=== PATIENT | male | born 1955 | race Caucasian/White ===

== ENCOUNTER 2023-01-15 13:27 | Outpatient (CLI) | payer OTHER | END 2023-01-15 13:28 | disposition home or self-care (01) | LOC: BICCT 13:27 | PROVIDERS: ATTEND Internal Medicine | DX: R91.8 Other nonspecific abnormal finding of lung field (principal); J43.9 Emphysema, unspecified; J98.4 Other disorders of lung | CPT/HCPCS: 71250 ==

== ENCOUNTER 2023-06-03 11:53 | Outpatient (CLI) | payer OTHER | END 2023-06-03 11:54 | disposition home or self-care (01) | LOC: RAD 11:53 | PROVIDERS: ATTEND Internal Medicine | DX: R06.00 Dyspnea, unspecified (principal); J84.10 Pulmonary fibrosis, unspecified | CPT/HCPCS: 71046 ==

== ENCOUNTER 2023-06-14 08:18 | Outpatient (CLI) | payer OTHER ==
[2023-06-14] MEDS ORDERED: Barium Sulfate 96% 176 GM BOT (xray ONLY) ONE (08:31)
[2023-06-14] MEDS ORDERED: E-Z-HD 98% W/W 340GM BOT (x-ray ONLY) ONE (08:31)
== END 2023-06-14 08:19 | disposition home or self-care (01) ==
LOC: RAD 08:18
PROVIDERS: ATTEND Internal Medicine
DX: R13.10 Dysphagia, unspecified (principal)
CPT/HCPCS: 74220

== ENCOUNTER 2023-08-17 12:22 | Outpatient (CLI) | payer OTHER ==
[~2023-08-17 12:22] MED LIST: Magnevist 469MG/ML 20 ML VIAL ONE
== END 2023-08-17 12:23 | disposition home or self-care (01) ==
LOC: MRI 12:22
PROVIDERS: ATTEND Internal Medicine
DX: C34.12 Malignant neoplasm of upper lobe, left bronchus or lung (principal)
CPT/HCPCS: 70553; A9579

== ENCOUNTER 2023-09-02 14:29 | Outpatient (CLI) | payer OTHER | END 2023-09-02 14:30 | disposition home or self-care (01) | LOC: BICCT 14:29 | PROVIDERS: ATTEND Internal Medicine | DX: C34.12 Malignant neoplasm of upper lobe, left bronchus or lung (principal); R59.0 Localized enlarged lymph nodes; I71.43 Infrarenal abdominal aortic aneurysm, without rupture; R91.8 Other nonspecific abnormal finding of lung field; J84.10 Pulmonary fibrosis, unspecified; I28.8 Other diseases of pulmonary vessels; K42.9 Umbilical hernia without obstruction or gangrene | CPT/HCPCS: 71260; 74177 ==

== ENCOUNTER 2023-10-01 06:17 | Emergency (ER) | payer OTHER | END 2023-10-01 06:36 | disposition home or self-care (01) | LOC: ERS 06:17 | DX: K43.9 Ventral hernia without obstruction or gangrene (principal); C34.90 Malignant neoplasm of unspecified part of unspecified bronchus or lung; Z87.891 Personal history of nicotine dependence ==

== ENCOUNTER 2023-10-26 09:49 | Day surgery (SDC) | payer OTHER ==
[2023-10-26] MEDS ORDERED: diphenhydrAMINE 25 MG CAP PO SCH (10:15)
[2023-10-26] MEDS ORDERED: Acetaminophen 500 MG TAB ONE (11:13)
[2023-10-26] MEDS: Acetaminophen 500 MG TAB PO SCH (11:14)
[2023-10-26 14:35] VITALS: BP 101/58; TEMP 97.9
== END 2023-10-26 14:57 | disposition home or self-care (01) ==
LOC: ONC/OP 09:49
PROVIDERS: ATTEND Internal Medicine
DX: D64.9 Anemia, unspecified (principal); D69.6 Thrombocytopenia, unspecified; Z88.0 Allergy status to penicillin
CPT/HCPCS: 36430; 86850; 86900; 86901; J1642; P9016

== ENCOUNTER 2024-01-17 10:24 | Inpatient (IN) | payer MEDICARE, OTHER ==
[~2024-01-17 10:24] MED LIST changes: +Iopamidol-370 76% 500 ML MDV (1 ML CHARGE) ONE; -Magnevist 469MG/ML 20 ML VIAL ONE
[2024-01-17 11:22] LABS: #Basophils Less than 0.03 10x3/uL (0.0-0.2); %Basophils 0.3 % (0.0-1.0); %Eosinophils 0.5 % (0.0-10.0); %Lymphocytes 3.4 % (21.0-51.0); %Monocytes 9.9 % (0.0-10.0); %Neutrophils 85.6 % (42.0-75.0); Hematocrit 31.8 % (42.0-52.0); Hemoglobin 10.6 g/dL (14.0-18.0); Mean Corpuscular HGB CONC 33.3 g/dL (32.0-36.0); Mean Corpuscular Hemoglobin 34.4 pg (27.0-31.0); Mean Corpuscular Volume 103.2 fL (78.0-98.0); Mean Platelet Volume 10.1 fL (7.4-10.4); Platelet Count 134 10x3/uL (130-400); RBC Distribution Width 13.2 % (11.5-14.5); Red Blood Cell (RBC) Count 3.08 mill/uL (4.70-6.10)
[2024-01-17 11:39] LABS: INR-International Normal Ratio 1.6; PTT 39.5 sec (22.9-36.1); Prothrombin Time 18.6 sec (12.0-14.7)
[2024-01-17] MEDS ORDERED: Ipratropium/Albuterol 3 ML NEB ONE (11:56)
[2024-01-17 11:57] LABS: ALT (SGPT) 63 U/L (8-55); AST (SGOT) 67 U/L (5-34); Albumin 2.7 g/dL (3.4-4.8); Alkaline Phosphatase 252 U/L (40-110); Anion Gap 16 mmol/L (10-20); BUN (Urea Nitrogen) 20 mg/dL (8.4-25.7); Bilirubin, Total 1.5 mg/dL (0.2-1.2); Calc. Creatinine Clearance 0 mL/min (70-130); Carbon Dioxide 22 mmol/L (23-31); Chloride 99 mmol/L (98-107); Estimated GFR 81; Globulin 5.2 g/dL (2.4-3.5); Glucose 120 mg/dL (80-115); Potassium 4.6 mmol/L (3.5-5.1); Protein, Total 7.9 g/dL (5.8-8.1); Sodium 132 mmol/L (136-145)
[2024-01-17 12:07] LABS: Troponin I 0.603 ng/mL (< 0.028)
[2024-01-17] MEDS ORDERED: Aspirin Chewable 81 MG TAB ONE (13:14)
[2024-01-17] MEDS ORDERED: Calcium Carbonate 500 MG ChewTAB PO PRN (14:40)
[2024-01-17] MEDS ORDERED: Ondansetron PF 4 MG/2 ML Vial IVP PRN (14:40)
[2024-01-17] MEDS ORDERED: Senokot S 8.6-50 MG TAB PO PRN (14:40)
[2024-01-17] MEDS ORDERED: Benzonatate 100 MG CAP PO PRN (14:50)
[2024-01-17 16:10] LABS: Troponin I 1.069 ng/mL (< 0.028)
[2024-01-17] MEDS: Sodium Chloride 0.9% 500 ML IV SCH (16:59)
[2024-01-17] MEDS: Sodium Chloride 0.9% 1,000 ML IV SCH (17:48)
[2024-01-17 19:06] LABS: Troponin I 1.196 ng/mL (< 0.028)
[2024-01-17] MEDS: Cyclobenzaprine 10 MG TAB PO SCH (20:41)
[2024-01-17] MEDS: Enoxaparin 80 MG (0.8 mL) SYRINGE SC SCH (20:42)
[2024-01-17] MEDS ORDERED: Apixaban 5 MG TAB PO SCH (21:00)
[2024-01-18 05:37] LABS: #Basophils Less than 0.03 10x3/uL (0.0-0.2); %Basophils 0.2 % (0.0-1.0); %Monocytes 11.1 % (0.0-10.0); %Neutrophils 83.1 % (42.0-75.0); Hematocrit 27.1 % (42.0-52.0); Hemoglobin 9.1 g/dL (14.0-18.0); Mean Corpuscular HGB CONC 33.6 g/dL (32.0-36.0); Mean Corpuscular Hemoglobin 34.1 pg (27.0-31.0); Mean Corpuscular Volume 101.5 fL (78.0-98.0); Mean Platelet Volume 10.5 fL (7.4-10.4); Platelet Count 126 10x3/uL (130-400); RBC Distribution Width 13.2 % (11.5-14.5); Red Blood Cell (RBC) Count 2.67 mill/uL (4.70-6.10)
[2024-01-18 06:29] LABS: ALT (SGPT) 82 U/L (8-55); Albumin 2.2 g/dL (3.4-4.8); Alkaline Phosphatase 293 U/L (40-110); Anion Gap 13 mmol/L (10-20); BUN (Urea Nitrogen) 14 mg/dL (8.4-25.7); Calc. Creatinine Clearance 82 mL/min (70-130); Calcium 8.2 mg/dL (7.8-10.44); Carbon Dioxide 22 mmol/L (23-31); Chloride 105 mmol/L (98-107); Estimated GFR 88; Globulin 3.5 g/dL (2.4-3.5); Glucose 111 mg/dL (80-115); Potassium 4.4 mmol/L (3.5-5.1); Protein, Total 5.7 g/dL (5.8-8.1); Sodium 136 mmol/L (136-145)
[2024-01-18] MEDS: Mometasone 200 MCG/Formoterol 5 MCG 120 PUFF INHALER INH SCH (06:45)
[2024-01-18 06:52] LABS: AST (SGOT) 107 U/L (5-34)
[2024-01-18] MEDS ORDERED: guaiFENesin/Codeine 200 mg/20 mg 10 ml Cup PO PRN (07:43)
[2024-01-18] MEDS: Aspirin Chewable 81 MG TAB PO SCH (08:35)
[2024-01-18] MEDS: guaiFENesin/Codeine 200 mg/20 mg 10 ml Cup PO SCH ×2 (08:35→12:30)
[2024-01-18] MEDS: Benzonatate 100 MG CAP PO SCH (08:35)
[2024-01-18] MEDS ORDERED: Enoxaparin 40 MG (0.4 mL) SYRINGE SC SCH (09:00)
[2024-01-18] MEDS: Ipratropium/Albuterol 3 ML NEB NEB SCH ×2 (09:30→12:24)
[2024-01-18] MEDS: dilTIAZem CD 120 MG CAP PO SCH ×2 (12:30→18:03)
[2024-01-18] MEDS: predniSONE 20 MG TAB PO SCH (17:22)
[2024-01-18] MEDS: Pantoprazole DR 40 MG TAB PO SCH (17:22)
[2024-01-18] MEDS ORDERED: dilTIAZem CD 180 MG CAP PO SCH (17:45)
[2024-01-18] MEDS: Digoxin 0.5 MG/2 ML AMP SLOW IVP SCH (18:03)
[2024-01-18] MEDS: Digoxin 0.5 MG/2 ML AMP ONE (18:13)
[2024-01-18] MEDS: Acetaminophen 325 MG TAB PO PRN (20:45)
[2024-01-18] MEDS ORDERED: Magnesium 2 GM/50 ML(in water) 2 GM in Premix 1 BAG IVPB SCH (21:15)
[2024-01-18] MEDS ORDERED: Magnesium Sulfate In Water 4 GM in Premix 1 BAG IVPB SCH (21:30)
[2024-01-18 21:41] LABS: Actual Bicarbonate (HCO3v) 20.1 mEq/L (22-28); Base Excess -2.3 mEq/L (-2.0 to +3.0); Calcium, Ionized (venous) 1.11 mmol/L (1.16-1.32); Chloride (VBG) 99 mmol/L (98-106); Hematocrit-VBG 32 % (42.0-52.0); Potassium (VBG) 4.51 mmol/L (3.70-5.30); pH (venous) 7.483 (7.32-7.43)
[2024-01-18 21:54] LABS: #Basophils Less than 0.03 10x3/uL (0.0-0.2); #Eosinophils Less than 0.03 10x3/uL (0.0-0.7); %Basophils 0.3 % (0.0-1.0); %Eosinophils 0.1 % (0.0-10.0); %Lymphocytes 1.1 % (21.0-51.0); %Monocytes 5.3 % (0.0-10.0); %Neutrophils 92.5 % (42.0-75.0); Hematocrit 28.7 % (42.0-52.0); Hemoglobin 9.9 g/dL (14.0-18.0); Mean Corpuscular HGB CONC 34.5 g/dL (32.0-36.0); Mean Corpuscular Hemoglobin 34.1 pg (27.0-31.0); Mean Platelet Volume 10.6 fL (7.4-10.4); Platelet Count 133 10x3/uL (130-400); RBC Distribution Width 13.2 % (11.5-14.5)
[2024-01-18] MEDS: Acetaminophen 325 MG TAB PO SCH (22:06)
[2024-01-18] MEDS: Doxycycline 100 MG CAP PO SCH (22:07)
[2024-01-18] MEDS: cefTRIAXone\\ROCEPHIN 1 GM in Sodium Chloride 0.9% 100 ML IVPB SCH (22:07)
[2024-01-18] MEDS: Magnesium 2 GM/50 ML(in water) 2 GM in Premix 1 BAG IVPB SCH (22:07)
[2024-01-18 22:14] LABS: Lactic Acid 1.09 mmol/L (0.5-2.2)
[2024-01-18 22:16] LABS: ALT (SGPT) 67 U/L (8-55); AST (SGOT) 65 U/L (5-34); Albumin 2.3 g/dL (3.4-4.8); Alkaline Phosphatase 267 U/L (40-110); Anion Gap 19 mmol/L (10-20); BUN (Urea Nitrogen) 11 mg/dL (8.4-25.7); Bilirubin, Total 1.3 mg/dL (0.2-1.2); Calc. Creatinine Clearance 86 mL/min (70-130); Calcium 9.3 mg/dL (7.8-10.44); Carbon Dioxide 19 mmol/L (23-31); Chloride 101 mmol/L (98-107); Estimated GFR 93; Globulin 4.7 g/dL (2.4-3.5); Glucose 125 mg/dL (80-115); Potassium 4.5 mmol/L (3.5-5.1); Sodium 134 mmol/L (136-145)
[2024-01-19 00:27] LABS: Bacteria/HPF None Seen HPF (None Seen); Bilirubin Negative (Negative); Blood, Urine Trace (Negative); CAUTI Indications for Culture Fever or rigors; Clarity Clear (Clear); Glucose, Urine (Dipstick) Normal (Negative); Ketone, Urine 20 mg/dL (Negative); Leukocyte Negative Leu/uL (Negative); Nitrite Negative (Negative); Protein, Urine (Dipstick) 20 mg/dL (Neg-Trace); RBC/HPF 0-3 HPF (0-3); Specific Gravity, Urine 1.008 (1.002-1.036); Squamous Epithelial 0-3 HPF (0-3); Urobilinogen 3 mg/dL (Less than 2); WBC/HPF 0-3 HPF (0-3); pH, Urine 5.5 (5.0-9.0)
[2024-01-19 00:38] LABS: Urine Culture Reflex No No
[2024-01-19] MEDS: Ipratropium/Albuterol 3 ML NEB NEB PRN (01:43)
[2024-01-19 04:56] LABS: Anion Gap 16 mmol/L (10-20); BUN (Urea Nitrogen) 13 mg/dL (8.4-25.7); Calc. Creatinine Clearance 83 mL/min (70-130); Calcium 9.4 mg/dL (7.8-10.44); Carbon Dioxide 20 mmol/L (23-31); Cardiac Risk 5.2 (Less than 4.5); Chloride 103 mmol/L (98-107); Cholesterol 125 mg/dl (< 200 Desired); Estimated GFR 89; Glucose 192 mg/dL (80-115); HDL Cholesterol 24 mg/dL (>60 Neg Risk); LDL Cholesterol, Calculated 87 mg/dL; Potassium 4.2 mmol/L (3.5-5.1); Sodium 135 mmol/L (136-145); Triglycerides 68 mg/dL (Less than 150)
[2024-01-19 05:10] LABS: #Basophils Less than 0.03 10x3/uL (0.0-0.2); #Eosinophils Less than 0.03 10x3/uL (0.0-0.7); %Lymphocytes 1.4 % (21.0-51.0); %Monocytes 3.7 % (0.0-10.0); %Neutrophils 94.2 % (42.0-75.0); Hematocrit 28.5 % (42.0-52.0); Hemoglobin 9.5 g/dL (14.0-18.0); Mean Corpuscular HGB CONC 33.3 g/dL (32.0-36.0); Mean Corpuscular Hemoglobin 34.7 pg (27.0-31.0); Mean Platelet Volume 10.5 fL (7.4-10.4); Platelet Count 124 10x3/uL (130-400); RBC Distribution Width 13.3 % (11.5-14.5); Red Blood Cell (RBC) Count 2.74 mill/uL (4.70-6.10)
[2024-01-19] MEDS ORDERED: dilTIAZem CD 240 MG CAP PO SCH (09:00)
[2024-01-19] MEDS ORDERED: dilTIAZem CD 120 MG CAP PO SCH (09:00)
[2024-01-19] MEDS: predniSONE 20 MG TAB PO SCH (09:41)
[2024-01-19] MEDS: Digoxin 0.5 MG/2 ML AMP SLOW IVP SCH (09:43)
[2024-01-19] MEDS: Pantoprazole DR 40 MG TAB PO SCH (09:44)
[2024-01-19] MEDS: dilTIAZem CD 120 MG CAP PO SCH (09:44)
[2024-01-19] MEDS: Doxycycline 100 MG CAP PO SCH (09:44)
[2024-01-19] MEDS: Cefepime 2 GM in Sodium Chloride 0.9% 100 ML IVPB SCH (09:45)
[2024-01-19] MEDS: FLU (Fluad Triv) TS24-25 (65UP)/MF59C/PF 45 MCG/0.5 ML Syringe IM ONE (09:46)
[2024-01-20 07:24] LABS: #Basophils Less than 0.03 10x3/uL (0.0-0.2); #Eosinophils Less than 0.03 10x3/uL (0.0-0.7); %Basophils 0.2 % (0.0-1.0); %Lymphocytes 1.6 % (21.0-51.0); %Monocytes 7.9 % (0.0-10.0); %Neutrophils 89.7 % (42.0-75.0); Hematocrit 32.2 % (42.0-52.0); Hemoglobin 10.6 g/dL (14.0-18.0); Mean Corpuscular HGB CONC 32.9 g/dL (32.0-36.0); Mean Corpuscular Hemoglobin 34.2 pg (27.0-31.0); Mean Corpuscular Volume 103.9 fL (78.0-98.0); Platelet Count 147 10x3/uL (130-400); RBC Distribution Width 13.5 % (11.5-14.5)
[2024-01-20] MEDS: ALPRAZolam 0.25 MG TAB PO SCH (09:00)
[2024-01-20] MEDS: Digoxin 0.125 MG TAB PO SCH (09:00)
[2024-01-20 09:13] LABS: Anion Gap 14 mmol/L (10-20); BUN (Urea Nitrogen) 22 mg/dL (8.4-25.7); Calc. Creatinine Clearance 92 mL/min (70-130); Calcium 9.7 mg/dL (7.8-10.44); Carbon Dioxide 23 mmol/L (23-31); Chloride 103 mmol/L (98-107); Estimated GFR 95; Glucose 151 mg/dL (80-115); Magnesium 2.3 mg/dL (1.6-2.6); Potassium 3.7 mmol/L (3.5-5.1); Sodium 136 mmol/L (136-145)
[2024-01-20 09:32] LABS: Actual Bicarbonate (HCO3a) 21.2 mEq/L (22-28); Base Excess (BEa) -1.9 mEq/L (-2.0 to +3.0); CO2 Tension 30.8 mmHg (35.0-45.0); Calcium, Ionized (arterial) 1.19 mmol/L (1.12-1.30); Carboxyhemoglobin (COHb) 0.6 gm% (0.0-3.0); Hematocrit-ABG 33 % (42.0-52.0); Hemoglobin (Hb) 11.1 g/dL (14.0-18.0); Potassium - ABG Lab 3.52 mmol/L (3.70-5.30); pH, Arterial 7.456 (7.35-7.45)
[2024-01-20] MEDS: Dexmedetomidine In 0.9 % NaCl 100 ML IV SCH (10:36)
[2024-01-20] MEDS: methylPREDNISolone Sod Succ/PF 125 MG/2 ML VIAL IVP SCH (11:02)
[2024-01-20] MEDS ORDERED: methylPREDNISolone Sod Succ 40 MG VIAL IVP SCH (12:00)
[2024-01-20] MEDS: Arformoterol 15 MCG/2 ML NEB NEB SCH (18:31)
[2024-01-20] MEDS: Docusate 100 MG CAP PO SCH (22:23)
[2024-01-21 04:34] LABS: #Basophils Less than 0.03 10x3/uL (0.0-0.2); #Eosinophils Less than 0.03 10x3/uL (0.0-0.7); %Basophils 0.2 % (0.0-1.0); %Lymphocytes 1.3 % (21.0-51.0); %Monocytes 3.4 % (0.0-10.0); %Neutrophils 94.1 % (42.0-75.0); Hematocrit 29.6 % (42.0-52.0); Hemoglobin 9.8 g/dL (14.0-18.0); Mean Corpuscular HGB CONC 33.1 g/dL (32.0-36.0); Mean Corpuscular Hemoglobin 34.1 pg (27.0-31.0); Mean Corpuscular Volume 103.1 fL (78.0-98.0); Mean Platelet Volume 10.5 fL (7.4-10.4); Platelet Count 132 10x3/uL (130-400); RBC Distribution Width 13.2 % (11.5-14.5); Red Blood Cell (RBC) Count 2.87 mill/uL (4.70-6.10)
[2024-01-21 04:46] LABS: Anion Gap 10 mmol/L (10-20); BUN (Urea Nitrogen) 20 mg/dL (8.4-25.7); Calc. Creatinine Clearance 112 mL/min (70-130); Calcium 9.5 mg/dL (7.8-10.44); Carbon Dioxide 24 mmol/L (23-31); Chloride 106 mmol/L (98-107); Estimated GFR 101; Glucose 168 mg/dL (80-115); Potassium 4.4 mmol/L (3.5-5.1); Sodium 136 mmol/L (136-145)
[2024-01-21] MEDS: ALPRAZolam 0.25 MG TAB PO PRN (09:01)
[2024-01-22] MEDS: Lorazepam 2 MG/ML VIAL SLOW IVP SCH (00:42)
[2024-01-22 04:05] LABS: #Basophils Less than 0.03 10x3/uL (0.0-0.2); #Eosinophils Less than 0.03 10x3/uL (0.0-0.7); %Basophils 0.2 % (0.0-1.0); %Lymphocytes 1.5 % (21.0-51.0); %Monocytes 5.1 % (0.0-10.0); %Neutrophils 92.7 % (42.0-75.0); Hematocrit 31.9 % (42.0-52.0); Hemoglobin 10.7 g/dL (14.0-18.0); Mean Corpuscular HGB CONC 33.5 g/dL (32.0-36.0); Mean Corpuscular Hemoglobin 33.6 pg (27.0-31.0); Mean Corpuscular Volume 100.3 fL (78.0-98.0); Mean Platelet Volume 11.2 fL (7.4-10.4); Platelet Count 134 10x3/uL (130-400); RBC Distribution Width 13.2 % (11.5-14.5); Red Blood Cell (RBC) Count 3.18 mill/uL (4.70-6.10)
[2024-01-22 04:18] LABS: Anion Gap 13 mmol/L (10-20); BUN (Urea Nitrogen) 27 mg/dL (8.4-25.7); Calc. Creatinine Clearance 103 mL/min (70-130); Calcium 9.5 mg/dL (7.8-10.44); Carbon Dioxide 23 mmol/L (23-31); Chloride 106 mmol/L (98-107); Estimated GFR 99; Glucose 167 mg/dL (80-115); Potassium 4.7 mmol/L (3.5-5.1); Sodium 137 mmol/L (136-145)
[2024-01-22] MEDS ORDERED: OCTAGAM 10% (10 GM/100 ML VIAL) IVPB SCH (12:15)
[2024-01-22] MEDS: Privigen 40 GM in Premix 1 BAG IVPB SCH (13:36)
[2024-01-23 04:10] LABS: #Basophils Less than 0.03 10x3/uL (0.0-0.2); #Eosinophils Less than 0.03 10x3/uL (0.0-0.7); %Basophils 0.2 % (0.0-1.0); %Lymphocytes 1.4 % (21.0-51.0); %Monocytes 5.9 % (0.0-10.0); %Neutrophils 91.3 % (42.0-75.0); Hematocrit 31.1 % (42.0-52.0); Hemoglobin 10.3 g/dL (14.0-18.0); Mean Corpuscular HGB CONC 33.1 g/dL (32.0-36.0); Mean Corpuscular Hemoglobin 33.9 pg (27.0-31.0); Mean Corpuscular Volume 102.3 fL (78.0-98.0); Mean Platelet Volume 11.1 fL (7.4-10.4); Platelet Count 133 10x3/uL (130-400); RBC Distribution Width 13.6 % (11.5-14.5); Red Blood Cell (RBC) Count 3.04 mill/uL (4.70-6.10)
[2024-01-23 04:21] LABS: Anion Gap 13 mmol/L (10-20); BUN (Urea Nitrogen) 32 mg/dL (8.4-25.7); Calc. Creatinine Clearance 92 mL/min (70-130); Calcium 9.2 mg/dL (7.8-10.44); Carbon Dioxide 24 mmol/L (23-31); Chloride 103 mmol/L (98-107); Estimated GFR 96; Glucose 159 mg/dL (80-115); Sodium 136 mmol/L (136-145)
[2024-01-23] MEDS: Lorazepam 2 MG/ML VIAL SLOW IVP SCH (06:03)
[2024-01-23] MEDS: Lorazepam 2 MG/ML VIAL ONE (06:28)
[2024-01-23 10:37] LABS: ALT (SGPT) 161 U/L (8-55); AST (SGOT) 91 U/L (5-34); Alkaline Phosphatase 217 U/L (40-110); Bilirubin, Direct 0.4 mg/dL (0.1-0.3); Bilirubin, Total 0.7 mg/dL (0.2-1.2); Protein, Total 6.9 g/dL (5.8-8.1)
[2024-01-23] MEDS: Sulfameth/Trimethoprim DS 800-160mg TAB PO SCH (10:38)
[2024-01-23] MEDS ORDERED: OCTAGAM 10% (20 GM/200 ML VIAL) IVPB SCH (12:15)
[2024-01-23] MEDS: Enoxaparin 80 MG (0.8 mL) SYRINGE SC SCH (20:05)
[2024-01-24 04:17] LABS: #Basophils Less than 0.03 10x3/uL (0.0-0.2); #Eosinophils Less than 0.03 10x3/uL (0.0-0.7); %Basophils 0.2 % (0.0-1.0); %Lymphocytes 1.6 % (21.0-51.0); %Monocytes 8.5 % (0.0-10.0); %Neutrophils 88.1 % (42.0-75.0); Hematocrit 30.1 % (42.0-52.0); Mean Corpuscular HGB CONC 33.2 g/dL (32.0-36.0); Mean Corpuscular Hemoglobin 32.9 pg (27.0-31.0); Mean Platelet Volume 11.8 fL (7.4-10.4); Platelet Count 109 10x3/uL (130-400); RBC Distribution Width 13.6 % (11.5-14.5); Red Blood Cell (RBC) Count 3.04 mill/uL (4.70-6.10)
[2024-01-24 04:36] LABS: Anion Gap 9 mmol/L (10-20); BUN (Urea Nitrogen) 30 mg/dL (8.4-25.7); Calc. Creatinine Clearance 103 mL/min (70-130); Calcium 8.9 mg/dL (7.8-10.44); Carbon Dioxide 27 mmol/L (23-31); Chloride 104 mmol/L (98-107); Estimated GFR 99; Glucose 140 mg/dL (80-115); Sodium 136 mmol/L (136-145)
[2024-01-24 04:37] LABS: CRP,High Sensitivity (Inhouse) 4.52 mg/dL (< or = 0.5)
[2024-01-24 04:46] VITALS: BMI 22.7
[2024-01-24] MEDS ORDERED: predniSONE 50 MG TAB PO SCH ×2 (08:00)
[2024-01-24] MEDS: predniSONE 20 MG TAB PO SCH ×2 (08:43→09:39)
[2024-01-24 09:39] LABS: Actual Bicarbonate (HCO3v) 26.1 mEq/L (22-28); Base Excess 2.6 mEq/L (-2.0 to +3.0); Calcium, Ionized (venous) 1.21 mmol/L (1.16-1.32); Chloride (VBG) 102 mmol/L (98-106); Hematocrit-VBG 33 % (42.0-52.0); Hemoglobin (Hb) 11.3 g/dL (12.6-17.4); pH (venous) 7.473 (7.32-7.43)
[2024-01-24] MEDS: Sildenafil Citrate 20 MG TAB PO SCH (09:39)
[2024-01-24] MEDS ORDERED: OCTAGAM 10% (5 GM/50 ML VIAL) IVPB SCH (12:15)
[2024-01-24 13:56] VITALS: BMI 22.7
[2024-01-24] MEDS: Budesonide 0.5 MG/2 ML NEB INH SCH (19:01)
[2024-01-25] MEDS: Morphine 4 MG/ML VIAL SLOW IVP SCH (00:29)
[2024-01-25] MEDS: Morphine 4 MG/ML VIAL ONE (00:30)
[2024-01-25 04:50] LABS: #Basophils Less than 0.03 10x3/uL (0.0-0.2); #Eosinophils Less than 0.03 10x3/uL (0.0-0.7); %Basophils 0.3 % (0.0-1.0); %Lymphocytes 3.5 % (21.0-51.0); %Monocytes 8.1 % (0.0-10.0); %Neutrophils 86.7 % (42.0-75.0); Hematocrit 34.8 % (42.0-52.0); Hemoglobin 11.8 g/dL (14.0-18.0); Mean Corpuscular HGB CONC 33.9 g/dL (32.0-36.0); Mean Corpuscular Hemoglobin 33.7 pg (27.0-31.0); Mean Corpuscular Volume 99.4 fL (78.0-98.0); Platelet Count 121 10x3/uL (130-400); RBC Distribution Width 13.9 % (11.5-14.5)
[2024-01-25 05:01] LABS: Anion Gap 11 mmol/L (10-20); BUN (Urea Nitrogen) 33 mg/dL (8.4-25.7); Calc. Creatinine Clearance 88 mL/min (70-130); Calcium 9.4 mg/dL (7.8-10.44); Carbon Dioxide 25 mmol/L (23-31); Chloride 103 mmol/L (98-107); Estimated GFR 96; Glucose 117 mg/dL (80-115); Potassium 4.5 mmol/L (3.5-5.1); Sodium 134 mmol/L (136-145)
[2024-01-25] MEDS: predniSONE 20 MG TAB PO SCH (08:25)
[2024-01-25] MEDS: Morphine 2 MG/ML VIAL SLOW IVP PRN (09:04)
[2024-01-25] MEDS: Multivit, Therapeutic 1 TAB PO SCH (20:56)
[2024-01-25] MEDS: Cyanocobalamin (Vitamin B-12) 1,000 MCG TAB PO SCH (20:56)
[2024-01-26 06:14] LABS: Phosphorus 3.4 mg/dL (2.3-4.7)
[2024-01-26 06:15] LABS: Anion Gap 9 mmol/L (10-20); BUN (Urea Nitrogen) 31 mg/dL (8.4-25.7); Calc. Creatinine Clearance 97 mL/min (70-130); Carbon Dioxide 25 mmol/L (23-31); Chloride 102 mmol/L (98-107); Estimated GFR 100; Glucose 116 mg/dL (80-115); Potassium 4.8 mmol/L (3.5-5.1); Sodium 131 mmol/L (136-145)
[2024-01-26 06:16] LABS: #Basophils Less than 0.03 10x3/uL (0.0-0.2); #Eosinophils Less than 0.03 10x3/uL (0.0-0.7); %Basophils 0.2 % (0.0-1.0); %Monocytes 4.4 % (0.0-10.0); Hematocrit 31.8 % (42.0-52.0); Hemoglobin 10.7 g/dL (14.0-18.0); Mean Corpuscular HGB CONC 33.6 g/dL (32.0-36.0); Mean Corpuscular Hemoglobin 33.6 pg (27.0-31.0); Mean Platelet Volume 11.9 fL (7.4-10.4); Platelet Count 119 10x3/uL (130-400); RBC Distribution Width 13.8 % (11.5-14.5); Red Blood Cell (RBC) Count 3.18 mill/uL (4.70-6.10)
[2024-01-26] MEDS ORDERED: Lorazepam 2 MG/ML VIAL SLOW IVP PRN (08:00)
[2024-01-26] MEDS: Morphine 4 MG/ML VIAL SLOW IVP PRN (08:20)
[2024-01-26] MEDS: Pantoprazole 40 MG VIAL IVP SCH (08:54)
[2024-01-26] MEDS: fentaNYL 50 mcg/hour Patch TD SCH (08:54)
[2024-01-26 08:56] VITALS: BP 113/75
[2024-01-26 12:46] VITALS: TEMP 98
== END 2024-01-26 15:06 | disposition hospice, inpatient (51) | DRG 196 ==
LOC: SUATTDRO 10:24 → ERS 10:24 → MSONC 16:43 → 2NO 01-18 12:40 → CCU 01-20 09:46
PROVIDERS: ADMIT Internal Medicine; ATTEND Internal Medicine
PROC: 4A033R1 Measurement of Arterial Saturation, Peripheral, Percutaneous Approach (ICD-10-PCS; principal; 2024-01-20)
DX: J84.10 Pulmonary fibrosis, unspecified (principal); I21.A1 Myocardial infarction type 2; J15.69 Pneumonia due to other Gram-negative bacteria; J96.01 Acute respiratory failure with hypoxia; E87.1 Hypo-osmolality and hyponatremia; E44.0 Moderate protein-calorie malnutrition; C34.12 Malignant neoplasm of upper lobe, left bronchus or lung; I47.10 Supraventricular tachycardia, unspecified; Z66 Do not resuscitate; Z51.5 Encounter for palliative care; J43.9 Emphysema, unspecified; D63.8 Anemia in other chronic diseases classified elsewhere; D69.6 Thrombocytopenia, unspecified; Z68.22 Body mass index [BMI] 22.0-22.9, adult; Z88.0 Allergy status to penicillin; Z79.899 Other long term (current) drug therapy; Z79.01 Long term (current) use of anticoagulants; Z92.21 Personal history of antineoplastic chemotherapy; Z92.25 Personal history of immunosuppression therapy; Z87.891 Personal history of nicotine dependence; Z86.711 Personal history of pulmonary embolism; Z86.718 Personal history of other venous thrombosis and embolism
CPT/HCPCS: 36415; 71045; 71275; 80048; 80053; 80061; 80076; 81001; 82306; 82805; 83605; 83735; 83880; 84100; 84145; 84484; 85025; 85610; 85730; 86141; 87040; 87428; 87633; 93005; 93306; 94640; 94660; 94664; 94760; 96360; J0692; J0696; J1160; J1459; J1650; J2060; J2272; J2470; J2919; J3475; J7030; J7512; J7620; J7626; Q9967